=== PATIENT | male | born 1965 | race Two or more races ===

== ENCOUNTER 2024-07-05 17:24 | Emergency (ER) | payer MEDICAID ==
[~2024-07-05] VITALS: Ht 175.3 cm; Wt 69.0 kg
[~2024-07-05 17:24] MED LIST: IBUP-1454 PO
[2024-07-05 18:17] LABS: Basophils # (auto) 0 10 ^3/uL (0-0.2); Basophils % (auto) 0.2 % (0.0-2.0); Eosinophils # (auto) 0 10 ^3/uL (0-0.8); Eosinophils % (auto) 0.1 % (0.0-7.0); Hematocrit 46.5 % (41.0-53.0); Hemoglobin 16.4 g/dL (13.5-17.5); Lymphocytes # (auto) 1.4 10 ^3/uL (0.4-5.4); Lymphocytes % (auto) 11.9 % (10.0-50.0); Mean Corpuscular Hemoglobin 30.2 pg (28.0-32.0); Mean Corpuscular Hgb Conc. 35.3 g/dL (32.0-36.0); Mean Corpuscular Volume 85.7 fL (80.0-100.0); Monocytes # (auto) 0.9 10 ^3/uL (0-1.3); Monocytes % (auto) 7.8 % (0.0-12.0); Neutrophils # (auto) 9.6 10 ^3/uL (1.6-8.6); Nucleated Red Blood Cells % 0.4 %; Platelet Count (auto) 271 10^3/uL (140-450); Red Blood Cells 5.42 10^6/uL (4.5-5.90); Red Cell Distribution Width 15.3 % (11.8-14.3)
[2024-07-05 18:27] LABS: Chloride 107 mmol/L (98-107); Sodium 138 mmol/L (136-145)
[2024-07-05 18:28] LABS: Anion Gap 10 (5-15); Calcium 9.9 mg/dL (8.7-10.4); Carbon Dioxide 21 mmol/L (20-31)
[2024-07-05 18:33] LABS: Glucose 133 mg/dL (74-106)
[2024-07-05 18:41] LABS: BUN/Creatinine Ratio 14.4 (10.0-20.0); Blood Urea Nitrogen 14 mg/dL (9-23); Potassium 4.5 mmol/L (3.5-5.1)
[2024-07-05] MEDS ORDERED: IBUP-1455 PO (21:27)
[2024-07-05] MEDS ORDERED: DOXY-286 PO (21:27)
[2024-07-05] MEDS ORDERED: cefTRIAXone W LIDOCAINE 500 MG IM IM ONE (21:30)
[2024-07-05] MEDS ORDERED: KETOROLAC TROMETH 30 MG/ML 1ML VIAL IM ONE (21:30)
[2024-07-05 22:01] VITALS: BP 114/67; PULSE 102; RESP 18; TEMP 97.9; O2SAT 98
[2024-07-06] MEDS ORDERED: DOXY100C4 PO (18:12)
== END 2024-07-05 22:38 | disposition home or self-care (01) ==
LOC: ER 17:24
DX: N45.1 Epididymitis (principal); F17.210 Nicotine dependence, cigarettes, uncomplicated; Z79.899 Other long term (current) drug therapy
CPT/HCPCS: 36415; 76870; 80048; 85025; J0696